=== PATIENT | female | born 1960 | race Caucasian/White ===

== ENCOUNTER 2022-07-19 13:06 | Emergency (ER) | payer OTHER, SELFPAY ==
[2022-07-19 13:02] VITALS: BMI 30.4
[2022-07-19 13:12] VITALS: BP 115/70; PULSE 77; RESP 20; TEMP 36.2; O2SAT 98
--- NOTE | 2022-07-19 13:24 | DI.CT.S_ITS ---
PROCEDURE: CT HEAD/BRAIN WO CON INDICATIONS: Head injury, recent blood thinner use TECHNIQUE: Noncontrast 4.5 mm thick angled axial sections acquired from the foramen magnum to the vertex, with coronal and sagittal reformats. For radiation dose reduction, the following was used: automated exposure control, adjustment of mA and/or kV according to patient size. COMPARISON: None. FINDINGS: Image quality: Excellent CSF spaces: Basal cisterns are patent. Lateral ventricles are symmetric. Volume: Periventricular white matter hypoattenuation is commonly seen with chronic small vessel disease. Volume loss is present. These findings are mild Brain: No intracranial hemorrhage. Bartlett-white differentiation is grossly maintained. Craniofacial structures: No displaced fracture. Sinuses are clear. Orbits are intact. IMPRESSION: No acute intracranial abnormality. Dictated by: Reginald Hurley M.D. on 07/19/2022 at 14:28 Approved by: Reginald Hurley M.D. on 07/19/2022 at 14:31
[2022-07-19] MEDS: TET,DIPH,PERTUSS(ACELL),VAC/PF 0.5 ML SYRINGE IM (13:31)
--- NOTE | 2022-07-19 13:33 | ED.WOUNDLAC ---
HPI - Wound/Laceration <Darren Levin PA-C - Last Filed: 07/19/22 14:52> General Chief Complaint: Wound/Laceration Stated Complaint: Hit head on Scaffold. No thinners Time Seen by Provider: 07/19/22 13:13 Source: EMS Mode of arrival: EMS History of Present Illness HPI narrative: This is a 60-year-old female presents emergency department due to hitting her head on some scaffolding just prior to arrival. Reports a small amount of bleeding from top of head. Denies any loss of consciousness, nausea, vomiting, dizziness, weakness, slurred speech, or any other concerning signs or symptoms. Reports blood thinner use, ending approximately 3 months ago due to a ?clot in the heart?. Takes daily baby aspirin. Related Data Allergies Allergy/AdvReac Type Severity Reaction Status Date / Time No Known Drug Allergies Allergy Unverified 07/19/22 13:05 Review of Systems <Darren Levin PA-C - Last Filed: 07/19/22 14:52> Review of Systems Narrative: GENERAL: Denies chills, fatigue, malaise, fever, sweats. HEENT: Reports head pain, Denies sinus pain, ear pain, sore throat, difficulty swallowing, dizziness. RESPIRATORY: Denies dyspnea, cough, wheezing, hemoptysis, sputum. CARDIOVASCULAR: Denies chest pain, palpitations, orthopnea, edema, GASTROINTESTINAL: Denies nausea, vomiting, abdominal pain, diarrhea, constipation, melena. : Denies dysuria, frequency, incontinence, hematuria, urinary retention. MUSCULOSKELETAL: denies weakness, joint pain, or bony pain SKIN: Denies rash, skin lesions, or other NEUROLOGIC: Denies weakness, headache, numbness, change in speech, confusion, seizures, incoordination. PSYCHIATRIC: No concerning psychosocial issues. 12 point review of systems is negative except for those stated above Exam <ABHISHEK Sadners Last Filed: 07/19/22 14:52> Narrative Exam Narrative: GENERAL: Well-developed patient, in mild distress. HEAD: Atraumatic. Normocephalic. EYES: Pupils equal round and reactive. Extraocular motions intact. No scleral icterus. No injection or drainage. ENT: Nose without bleeding, purulent drainage. Throat without erythema, tonsillar hypertrophy or exudate. Airway patent. NECK: Trachea midline. Non tender CARDIOVASCULAR: Regular rate and rhythm without murmurs, gallops, or rubs. RESPIRATORY: Clear to auscultation. Breath sounds equal bilaterally. No wheezes, rales, or rhonchi. GASTROINTESTINAL: Abdomen soft, non-tender, nondistended. EXTREMITIES: No edema or joint tenderness. BACK: Nontender without deformity or crepitance. No flank tenderness. NEURO: AOx3. SKIN: 2 cm laceration to the top of the head, no active bleeding, no crepitus Initial Vital Signs Initial Vital Signs: Vital Signs Temperature 97.2 F L 07/19/22 13:12 Pulse Rate 77 07/19/22 13:12 Respiratory Rate 20 07/19/22 13:12 Blood Pressure 115/70 07/19/22 13:12 Pulse Oximetry 98 07/19/22 13:12 Oxygen Delivery Method 07/19/22 13:12 <Patricia Evans DO - Last Filed: 07/20/22 08:51> Initial Vital Signs Initial Vital Signs: Vital Signs Temperature 97.2 F L 07/19/22 13:12 Pulse Rate 77 07/19/22 13:12 Respiratory Rate 20 07/19/22 13:12 Blood Pressure 115/70 07/19/22 13:12 Pulse Oximetry 98 07/19/22 13:12 Oxygen Delivery Method 07/19/22 13:12 Procedures <Darren Levin PA-C - Last Filed: 07/19/22 14:52> Laceration Repair Laceration 1: Time of procedure: 14:50 Site: scalp Size (cm): 2 Description: linear Depth: simple, single layer Local Anesthetic: lidocaine 1% Amount of anesthesia used (mL): 2 Skin layer closed with: asha Course <Darren Levin PA-C - Last Filed: 07/19/22 14:52> Orders Ordered: Discontinued Medications Acetaminophen (Acetaminophen 325 Mg Tablet) 650 mg PO NOW ONE Stop: 07/19/22 14:26 Last Admin: 07/19/22 14:31 Dose: 650 mg Documented By: ILEANA Diphtheria/Tetanus/Acell Pertussis (Tet,Diph,Pertuss(Acell),Vac/Pf 0.5 Ml Syringe) 0.5 ml IM .ONCE ONE Stop: 07/19/22 13:25 Last Admin: 07/19/22 13:31 Dose: 0.5 ml Documented By: ILEANA Lidocaine/Epinephrine (Lidocaine 1% W/Epi) 4 ml INJ INTRA-OP ONE Stop: 07/19/22 13:25 Last Admin: 07/19/22 13:34 Dose: Not Given Documented By: [facility] Vital Signs Vital signs: Vital Signs - 8 hr 07/19/22 13:12 Temperature 97.2 F L Pulse Rate 77 Respiratory Rate 20 Blood Pressure 115/70 Pulse Oximetry 98 Oxygen Delivery Method Room Air <Patricia Evans DO - Last Filed: 07/20/22 08:51> Orders Ordered: Discontinued Medications Acetaminophen (Acetaminophen 325 Mg Tablet) 650 mg PO NOW ONE Stop: 07/19/22 14:26 Last Admin: 07/19/22 14:31 Dose: 650 mg Documented By: [facility] Diphtheria/Tetanus/Acell Pertussis (Tet,Diph,Pertuss(Acell),Vac/Pf 0.5 Ml Syringe) 0.5 ml IM .ONCE ONE Stop: 07/19/22 13:25 Last Admin: 07/19/22 13:31 Dose: 0.5 ml Documented By: [facility] Lidocaine/Epinephrine (Lidocaine 1% W/Epi) 4 ml INJ INTRA-OP ONE Stop: 07/19/22 13:25 Last Admin: 07/19/22 13:34 Dose: Not Given Documented By: [facility] Vital Signs Vital signs: Vital Signs - 8 hr 07/19/22 13:12 Temperature 97.2 F L Pulse Rate 77 Respiratory Rate 20 Blood Pressure 115/70 Pulse Oximetry 98 Oxygen Delivery Method Room Air MDM - Wound/Laceration <Darren Levin PA-C - Last Filed: 07/19/22 14:52> Imaging Data CT scan - head: Radiologist's Impression: [place] [address] CT Scan Report Signed Patient: Giuliana Amor MR#: [id number] : 1960 Acct:[id number] Age/Sex: 62 / F Date of Service: 07/19/22 Loc: ED Accession Number: [id number] ?? Procedure: CT head/brain wo con Ordering Provider: Darren Levin P.A-C PROCEDURE:? CT HEAD/BRAIN WO CON ? INDICATIONS:? Head injury, recent blood thinner use ? TECHNIQUE:? Noncontrast 4.5 mm thick angled axial sections acquired from the foramen magnum to the vertex, with coronal and sagittal reformats.? For radiation dose reduction, the following was used:? automated exposure control, adjustment of mA and/or kV according to patient size.? ? COMPARISON:? None. ? FINDINGS:? Image quality: Excellent ? CSF spaces: Basal cisterns are patent. Lateral ventricles are symmetric. Volume:? Periventricular white matter hypoattenuation is commonly seen with chronic small vessel disease. Volume loss is present. These findings are mild ? Brain: No intracranial hemorrhage. Bartlett-white differentiation is grossly maintained. ? Craniofacial structures: No displaced fracture. Sinuses are clear. Orbits are intact. ? IMPRESSION:? No acute intracranial abnormality. ? ? Dictated by: Reginald Hurley M.D. on 07/19/2022 at 14:28 ? ? Approved by: Reginald Hurley M.D. on 07/19/2022 at 14:31 ? MDM Narrative Medical decision making narrative: This is a 62-year-old female presents to the emergency department due to a scalp laceration after hitting her head on a pole. Patient notes Yomaira neuro deficits and physical exam was unremarkable other than the laceration. Patient please was taking a course of blood thinners ending roughly 3 months ago and is still taking a daily baby aspirin due to a ?clot in the heart?. Head CT was ordered which was negative for any intracranial bleeding. Laceration closed without complications using asha although similar did difficult to visualize the laceration secondary to hair. No active bleeding after laceration repair. Discharge Plan Departure Patient Disposition: Home Clinical Impression: Laceration Instructions: DI for Laceration Repair -- [place] Activity Restrictions/Additional Instructions: Thank you for coming to the [facility] Emergency Department today. I am glad that we are able to close up the laceration to her head. You may follow-up with your primary care provider, urgent care, or return here for staple removal in 7-10 days. Please use Tylenol for the pain.. The head CT today showed no intracranial bleeding. I hope you feel better soon. Visit Report Forms: Patient Portal/API <Patricia Evans DO - Last Filed: 07/20/22 08:51> Cosign ED Attending Álvaroature Attestation: I was immediately available in the department for consultation. Documentation has been reviewed. I agree with assessment and plan.
--- NOTE | 2022-07-19 13:42 | PC.NURSE ---
bleeding controlled up on arrival to ED. No thinners since march. Patient reports headache kicking in. Discussed pain managment with provider. WIll wait for head CT to medicate with patients preferred medication of NSAID. Patient TDAP up dated in ER. Patient denies c-spine tenderness. ALert and oriented x4. No focal deficits noted.
[2022-07-19] MEDS: ACETAMINOPHEN 325 MG TABLET 650 MG PO (14:31)
[2022-07-19 14:56] VITALS: BP 112/68; PULSE 72; RESP 16; O2SAT 98
== END 2022-07-19 14:57 | disposition home or self-care (01) ==
PROVIDERS: Emergency Provider Physician Assistant Medical
DX: S01.01XA Laceration without foreign body of scalp, initial encounter (principal); W22.8XXA Striking against or struck by other objects, initial encounter; Y99.0 Civilian activity done for income or pay; Z23 Encounter for immunization
CPT/HCPCS: 12001; 70450; 90471; 99284; 90715

== ENCOUNTER 2022-07-30 08:05 | Emergency (ER) | payer OTHER, SELFPAY ==
[2022-07-30 08:12] VITALS: BP 120/70; PULSE 78; RESP 19; TEMP 36.4; O2SAT 97; BMI 30.4
--- NOTE | 2022-07-30 08:16 | ED.RECABL ---
HPI - Recheck/Abnormal Lab/Rx General Chief Complaint: Recheck/Abnormal Lab/Rx Stated Complaint: need to have asha removed Time Seen by Provider: 07/30/22 08:16 Source: patient Mode of arrival: Family Vehicle History of Present Illness HPI narrative: 60-year-old female nonsmoker with noncontributory medical history presents with the request of suture removal. She was seen and evaluated here 10 days ago after having a head injury resulting in a laceration and had asha placed. She is had no ongoing symptoms and denies headache, blurred vision, dizziness, weakness or lightheadedness. She denies extremity numbness, tingling or weakness. She is had no fever or chills. Related Data Allergies Allergy/AdvReac Type Severity Reaction Status Date / Time No Known Drug Allergies Allergy Verified 07/30/22 08:12 Review of Systems Review of Systems Narrative: GENERAL: Denies chills, fatigue, malaise, fever, sweats. HEENT: Denies sinus pain, ear pain, sore throat, difficulty swallowing, dizziness. RESPIRATORY: Denies dyspnea, cough, wheezing, hemoptysis, sputum. CARDIOVASCULAR: Denies chest pain, palpitations, orthopnea, edema, GASTROINTESTINAL: Denies nausea, vomiting, abdominal pain, diarrhea, constipation, melena. : Denies dysuria, frequency, incontinence, hematuria, urinary retention. MUSCULOSKELETAL: denies weakness, joint pain, or bony pain SKIN: see HPI NEUROLOGIC: Denies weakness, headache, numbness, change in speech, confusion, seizures, incoordination. PSYCHIATRIC: No concerning psychosocial issues. 12 point review of systems is negative except for those stated above Patient History Social History Smoking Status: Never smoker Smoking Status: Never smoker alcohol intake frequency: 0-2 drinks per day Substance Use Type: does not use Exam Narrative Exam Narrative: GEN: AOx3 and in mild distress EYES: Pupils are equal, round, and reactive to light and accommodation. Extraoccular muscles are intact bilaterally. There is no subconjunctival hemorrhage or exudate. CHEST: Lungs are clear to auscultation bilaterally and free of wheezes, rales, or rhonchi. Heart rate is regular rhythm, there are no murmurs, clicks, rubs, or gallops. There is no chest wall tenderness. ABD: Abdomen is soft and nontender. There is no guarding or rebound. Bowel sounds are normal in all 4 quadrants. There is no mass or organomegaly. EXT: Full painless ROM of all extremities with no loss of sensation or strength. SKIN: 4 asha on scalp. No erythema, dehiscence or drainage. Warm, pink, and dry. No erythema or rash Initial Vital Signs Initial Vital Signs: Vital Signs Temperature 97.6 F 07/30/22 08:12 Pulse Rate 78 07/30/22 08:12 Respiratory Rate 19 07/30/22 08:12 Blood Pressure 120/70 07/30/22 08:12 Pulse Oximetry 97 07/30/22 08:12 Oxygen Delivery Method 07/30/22 08:12 Course Course Course Narrative: Four asha easily removed by nursing, very minimal bleeding afterwards, bandage placed Vital Signs Vital signs: Vital Signs - 8 hr 07/30/22 08:12 Temperature 97.6 F Pulse Rate 78 Respiratory Rate 19 Blood Pressure 120/70 Pulse Oximetry 97 Oxygen Delivery Method Room Air Discharge Plan Departure Patient Disposition: Home Clinical Impression: Laceration, Encounter for removal of asha Instructions: DI for Laceration Repair -- [place] Activity Restrictions/Additional Instructions: There is no evidence of an emergent or life threatening illness at this time, but follow up with your doctor in 1-2 days is recommended nonetheless to continue to rule out serious underlying causes of your symptoms. Please call the office for an appointment. Please return to the Emergency Department for any worsening or persistent symptoms. Please take medications as directed.
== END 2022-07-30 08:27 | disposition home or self-care (01) ==
PROVIDERS: Emergency Provider Emergency Medicine
DX: Z48.1 Encounter for planned postprocedural wound closure (principal); Y99.0 Civilian activity done for income or pay
CPT/HCPCS: 99281